=== PATIENT | male | born 1945 | race Caucasian/White ===

== ENCOUNTER → 2016-08-15 10:38 | Outpatient (CLI) | payer MEDICARE, BC | END | disposition home or self-care (01) | LOC: D.MRI 10:38 | DX: M54.16 Radiculopathy, lumbar region (principal) ==

== ENCOUNTER → 2018-04-15 07:11 | Outpatient (CLI) | payer MEDICARE, BC | END | disposition home or self-care (01) | LOC: D.CT 07:11 | DX: R93.89 Abnormal findings on diagnostic imaging of other specified body structures (principal) ==

== ENCOUNTER 2020-10-06 14:48 | Emergency (ER) | payer MEDICARE, BC ==
[~2020-10-06] VITALS: Ht 167.6 cm; Wt 90.9 kg
[2020-10-06 14:55] VITALS: Ht 167.6 cm; Wt 90.9 kg
[2020-10-06 15:12] LABS: BASOPHILS 0.1 % (0-2); EOSINOPHILS 2.6 % (0-7); HEMATOCRIT 40.7 % (42.0-54.0); HEMOGLOBIN 14.4 g/dL (13.5-17.5); IMMATURE GRANULOCYTES 0.3 % (0-5); LYMPHOCYTE ABS# 1.74 10x3/uL (1.32-3.57); LYMPHOCYTES 21.8 % (15-50); MCH 33.3 pg (26.0-34.0); MCHC 35.4 g/dL (31.0-37.0); MCV 94.2 fL (80.0-100.0); MEAN PLATELET VOLUME 10.5 fL (7.4-10.4); MONOCYTES 7.9 % (2-11); NEUTROPHIL ABS# 5.37 10x3/uL (1.78-5.38); NEUTROPHILS 67.3 % (40-80); PLATELET COUNT 123 10x3/uL (130-400); RBC 4.32 10x6/uL (4.20-6.10)
[2020-10-06 15:21] LABS: APTT 26.3 SECONDS (22.8-39.4); INR 1.18 (0.85-1.17); PROTIME 13.9 SECONDS (11.6-15.0)
[2020-10-06 15:27] LABS: CALC OSMOLALITY 284 mosm/kg (275-300); CALCIUM 8.8 mg/dL (8.5-10.1); CHLORIDE - SERUM 105 mmol/L (98-107); CREATININE - SERUM 1.1 mg/dL (0.6-1.3); GLUCOSE 92 mg/dL (74-106); POTASSIUM - SERUM 3.9 mmol/L (3.5-5.1); SODIUM 142 mmol/L (136-145); UREA NITROGEN 19 mg/dL (7-18); eGFR NON AFRICAN AMERICAN 70 mL/min (90-120)
[2020-10-06 15:44] LABS: ALBUMIN 3.8 g/dL (3.4-5.0); ALKALINE PHOSPHATASE 88 U/L (30-120); ALT (SGPT) 23 U/L (10-68); BILIRUBIN - TOTAL 0.67 mg/dL (0.2-1.3); CKMB 2.1 U/L (0.0-3.6); CREATINE KINASE 85 UL (21-232)
[2020-10-06 15:49] LABS: TROPONIN-I < 0.017 ng/mL (0.000-0.060)
[2020-10-06 16:39] VITALS: BP 194/95
== END 2020-10-06 18:10 | disposition home or self-care (01) ==
LOC: D.ER 14:48
PROVIDERS: Family Medicine
DX: E86.0 Dehydration (principal); R55 Syncope and collapse; R42 Dizziness and giddiness; E11.9 Type 2 diabetes mellitus without complications; I10 Essential (primary) hypertension